=== PATIENT | female | born 1965 | race Caucasian/White ===

== ENCOUNTER 2016-10-31 23:01 | Emergency (ER) | payer BC ==
--- NOTE | ~2016-10-31 | ER ---
PATIENT'S NAME: B[facility]JI FLORES [facility] AGE: 50 Y [address] ROOM: [place] [address] LOCATION: ED ADMIT DATE: 10/31/2016 ER/Outpatient Report DISCHARGE DATE: 11/01/2016 FAMILY PHYSICIAN: Jurgen Shrestha MD ATTENDING PHYSICIAN: Caitlin Maya HISTORY OF PRESENT ILLNESS: This is a 50-year-old female who presents today with chief complaint of migraine headache, nausea, and vomiting. She reports that she gets migraines pretty infrequently, maybe once a year. She had one today. She went to the clinic, got a shot of Demerol and was sent home. She has had sort of persistent vomiting since then, which sort of makes her head feel worse. She says it is her typical migraine. It is sort of on both sides, squeezing and sharp, associated with photophobia and phonophobia. She denies any new neuro findings. She does not have any vision changes. No weakness on one side. No other complaints. States that the pain got better after Demerol, but then she kept vomiting, so now that the pain is back. PAST MEDICAL HISTORY: Includes just sort of migraine headaches. PAST SURGICAL HISTORY: Splenectomy. SOCIAL HISTORY: She does not smoke, drink, or use any drugs. MEDICATIONS: Please see med list. ALLERGIES: NONE. REVIEW OF SYSTEMS: Reviewed by me and negative with the exception of those discussed in the HPI. PHYSICAL EXAMINATION: VITAL SIGNS: She is 5 feet 2 inches, she weighs 67.8 kilos, blood pressure is 138/85, heart rate 86, respiratory rate 16, temperature is 99.5 tympanic, saturating 96% on room air. GENERAL: The patient does not appear in any acute distress. She is sitting upright in stretcher. She is not actively vomiting or retching. EYES: Pupils are equal and reactive to light. She tracks appropriately. She does have some photophobia but no visual field deficits. No visual acuity deficits. PATIENT'S NAME: BENJI FLORES [facility] AGE: 50 Y [address] ROOM: [place] [address] LOCATION: ED ADMIT DATE: 10/31/2016 ER/Outpatient Report DISCHARGE DATE: 11/01/2016 FAMILY PHYSICIAN: Jurgen Shrestha MD ATTENDING PHYSICIAN: Caitlin Maya HEART: Her heart rate is regular rate and rhythm. LUNGS: Her lungs sounds are clear. ABDOMEN: Soft, nontender, nondistended. She has no guarding or rebound. NEURO: GCS is 15. She is able to do [id number]-[id number] testing. She has no ataxia. She has no nuchal rigidity either. Strength in bilateral upper extremities 5/5. No pronator drift. Intact sensation in bilateral upper and lower extremities. EMERGENCY DEPARTMENT COURSE: The patient was given Toradol and Phenergan here with improvement of her symptoms. She says she feels ready to go home. I told her to lie in a dark room. We will give her a script for some Phenergan, and we will have her follow up with her primary care doctor. She understands reasons to come back to the ER sooner. IMPRESSION: Migraine. CAITLIN MAYA MD CAW/modl /[id number] d: 11/01/16400 t: 11/02/161953, OUTPATIENT REPORT
== END 2016-11-01 00:28 | disposition disaster alternative care site (69) ==
LOC: GMED 23:01
DX: G43.909 Migraine, unspecified, not intractable, without status migrainosus (principal); Z90.81 Acquired absence of spleen; Z79.899 Other long term (current) drug therapy
CPT/HCPCS: J1885; J2550